=== PATIENT | male | born 1955 | race Caucasian/White ===

== ENCOUNTER 2020-05-11 08:30 | Emergency (ER) | payer MEDICARE, MEDICAID ==
[~2020-05-11] VITALS: Ht 172.7 cm; Wt 79.4 kg
[2020-05-11] MEDS ORDERED: TRIHEXYPHENIDYL2 MG PO (08:48)
[2020-05-11] MEDS ORDERED: HALOPERIDOL10 MG PO (08:48)
== END 2020-05-11 09:00 | disposition home or self-care (01) ==
LOC: ED 08:30
DX: Z76.0 Encounter for issue of repeat prescription (principal); F17.200 Nicotine dependence, unspecified, uncomplicated
CPT/HCPCS: 99281